=== PATIENT | female | born 1960 | race Hispanic/Latino ===

== ENCOUNTER 2021-12-20 13:38 | Emergency (ER) | payer OTHER ==
[~2021-12-20] VITALS: Ht 154.9 cm; Wt 74.8 kg
[2021-12-20] MEDS ORDERED: ACETAMINOPHEN WITH CODEINE 1 TAB TAB PO ONE ×3 (16:00→17:00)
[2021-12-20 16:38] LABS: INFLUENZA TYPE A NEGATIVE FOR TYPE A (NEG); INFLUENZA TYPE B NEGATIVE FOR TYPE B (NEG)
[2021-12-20] MEDS ORDERED: D-ME1POW16 PO (16:43)
[2021-12-20] MEDS ORDERED: NIRM1TAB PO ×2 (16:43→16:51)
[2021-12-20 16:53] VITALS: BP 140/79
== END 2021-12-20 17:12 | disposition home or self-care (01) ==
LOC: EDH 13:38
DX: U07.1 COVID-19 (principal); J06.9 Acute upper respiratory infection, unspecified
CPT/HCPCS: 71045; 87635; 87804 ×2; 93005; 99285; C9803

== ENCOUNTER 2023-12-11 21:39 | Emergency (ER) | payer OTHER ==
[~2023-12-11] VITALS: Ht 154.9 cm; Wt 73.0 kg
[~2023-12-11 21:39] MED LIST: D-ME1POW16 PO; NIRM1TAB PO
[2023-12-11 22:01] VITALS: O2SAT 96
[2023-12-11 22:17] LABS: BASOPHILS # (AUTO) 0.04 K/uL (0.00-0.20); BASOPHILS % (AUTO) 0.5 % (0.0-5.0); EOSINOPHILS # (AUTO) 0.09 K/uL (0.00-0.70); EOSINOPHILS % (AUTO) 1.2 % (0.0-8.0); HEMATOCRIT 41.5 % (36-48); IMMATURE GRANULOCYTE ABSOLUTE 0.03 K/uL (0-1); LYMPHOCYTES # (AUTO) 2.7 K/uL (1.0-4.8); LYMPHOCYTES % (AUTO) 36.3 % (21.0-51.0); MEAN CORPUSCULAR HEMOGLOBIN 29.7 pg (27.0-33.0); MEAN CORPUSCULAR HGB CONC 33.7 g/dL (32.0-36.0); MEAN CORPUSCULAR VOLUME 88.1 fL (79-99); MONOCYTES # (AUTO) 0.5 K/uL (0.1-1.0); MONOCYTES % (AUTO) 7.3 % (3.0-13.0); NEUTROPHILS % (AUTO) 54.3 % (40.0-77.0); PLATELET COUNT (AUTO) 338 K/uL (130-400); RED BLOOD CELL COUNT(AUTO) 4.71 MIL/uL (4.00-5.50); RED CELL DISTRIBUTION WIDTH 11.6 % (11.0-15.5); WHITE BLOOD COUNT (AUTO) 7.4 K/uL (4.8-10.8)
[2023-12-11 22:55] LABS: POTASSIUM 3.8 mmol/L (3.5-5.1)
[2023-12-11 23:00] LABS: BILIRUBIN,TOTAL 0.2 mg/dL (0.2-1.0); TOTAL PROTEIN, SERUM 7.3 g/dL (6.0-8.3)
[2023-12-11] MEDS ORDERED: IOHEXOL 350 MG/ML 100ML INFUS..BTL IV ONE (23:20)
[2023-12-11] MEDS ORDERED: DICYCLOMINE 20MG (10MG/ML) AMP IM STA (23:48)
[2023-12-11] MEDS ORDERED: CEFU500T67 PO (23:52)
[2023-12-11] MEDS ORDERED: DICY20TA2 PO (23:52)
[2023-12-11] MEDS ORDERED: ACET-2247 PO (23:54)
[2023-12-12] MEDS ORDERED: METF-444 PO (00:10)
[2023-12-12] MEDS ORDERED: LISI10TA24 PO (00:10)
[2023-12-12 00:30] VITALS: BP 148/66; PULSE 70; RESP 17
== END 2023-12-12 00:31 | disposition home or self-care (01) ==
LOC: EDH 21:39
DX: N39.0 Urinary tract infection, site not specified (principal); Z79.899 Other long term (current) drug therapy; Z90.710 Acquired absence of both cervix and uterus
CPT/HCPCS: 99285; 74177; 71045; 84484; 80053; 85025; 36415; 93005; 96372; Q9967; J0500